=== PATIENT | male | born 1960 | race Caucasian/White ===

== ENCOUNTER 2022-05-31 16:19 | Emergency (ER) | payer MEDICARE ==
[~2022-05-31] VITALS: Ht 180.3 cm; Wt 111.1 kg
== END 2022-05-31 17:34 | disposition home or self-care (01) ==
LOC: FER 16:19
DX: M25.561 Pain in right knee (principal); Z88.1 Allergy status to other antibiotic agents; Z88.5 Allergy status to narcotic agent; Z91.040 Latex allergy status; Z91.018 Allergy to other foods; X58.XXXA Exposure to other specified factors, initial encounter; Y93.01 Activity, walking, marching and hiking; Y92.169 Unspecified place in school dormitory as the place of occurrence of the external cause
CPT/HCPCS: 73564